=== PATIENT | female | born 1990 | race African-American/Black ===

== ENCOUNTER 2025-06-11 09:36 | Emergency (ER) | payer OTHER, MEDICAID ==
[~2025-06-11] VITALS: Ht 167.6 cm; Wt 118.0 kg
[2025-06-11 09:40] VITALS: O2SAT 98
[2025-06-11 10:56] LABS: BASOPHILS % 0.4 % (0.0-2.0); EOSINOPHILS % 0.9 % (0.0-5.0); HEMATOCRIT. 27.8 % (36.0-48.0); HEMOGLOBIN. 8.4 g/dL (12.0-16.0); LYMPHOCYTES % 24.3 % (20.0-50.0); MEAN PLATELET VOLUME 8.6 fl (7.4-10.4); MONOCYTES % 7.9 % (2.0-8.0); NEUTROPHILS % 66.5 % (40.0-76.0); PLATELET 321 x1000/uL (130-400); RED BLOOD CELL COUNT 4.92 mill/uL (4.2-5.4); RED CELL DISTRIBUTION WIDTH 22.9 % (11.6-14.6)
[2025-06-11 11:00] LABS: ADD RBC MORPHOLOGY YES
[2025-06-11 11:33] LABS: CREATININE 0.8 mg/dL (0.6-1.0); TROPONIN I HIGH SENSITIVITY < 4 ng/L (3.0-34); UREA NITROGEN BLOOD 9 mg/dL (9-23)
[2025-06-11 12:00] LABS: PLATELET ESTIMATE NORMAL
[2025-06-11] MEDS: MORPHINE SULFATE 4 MG/ML INJ (FOR IV/IM USE) IV ONE (12:07)
[2025-06-11 12:55] VITALS: BP 158/79; PULSE 75; RESP 18; TEMP 36.7; O2SAT 97
[2025-06-11 13:04] LABS: TROPONIN I HIGH SENSITIVITY < 4 ng/L (3.0-34)
== END 2025-06-11 13:17 | disposition left against medical advice (07) ==
LOC: ER 09:36 → EDBEDREQTM 12:02 → EDBEDREQ 12:02 → ENRESERV 12:53 → CANRESERV 12:53 → CANBEDREQ 13:05 → ER 13:17
DX: R07.9 Chest pain, unspecified (principal); Z79.899 Other long term (current) drug therapy
CPT/HCPCS: 36415; 71045; 80048; 84484; 85025; 99285